=== PATIENT | male | born 1990 | race Caucasian/White ===

== ENCOUNTER 2019-03-31 13:14 | Emergency (ER) | payer OTHER ==
--- OUTSIDE RECORDS SUMMARY | 2019-03-31 13:29 | XMS REPORT | Continuity of Care Document ---
:1990 Author Organization [facility] Address [address] [place] [address] Care Team Providers Name Role Phone Unavailable Primary Care Physician Unavailable Insurance Providers Payer Name Policy Number Subscriber Name Relationship [employer]O NO FAULT [id number] ALEJANDRA JOSE SELF Chief Complaint and Reason for Visit Reason for Visit [employer] Problems Active Medical Problems Problem Onset Date Recorded Date Status Diabetic ketoacidosis Unknown 05/16/14 Active Diabetic neuropathy Unknown 07/25/14 Active Dehydration Unknown 06/22/15 Active DKA, type 1 Unknown 10/21/15 Active Gastroenteritis Unknown 10/23/15 Active Type 1 diabetes mellitus with diabetic neuropathy Unknown 10/23/15 Active Acute renal failure Unknown 11/30/15 Active Medications Current Home Medications Medication Dose Units Route Directions Days/Qty Instructions Start Date HUMALOG 100 UNIT Subcutaneous for BLOOD sliding scale as UNIT/1 ML VIAL SUGAR per blood sugar INSULIN 30 UNITS Subcutaneous AT BEDTIME for GLARGINE BLOOD SUGAR (LANTUS) (LANTUS) 100 UNIT/1 ML VIAL OXYCODONE 1 TAB Orally EVERY 4 HOURS, Max daily dose= HCL/ACETAMINOP NEEDED as HEN needed for (Oxycodon-Acet NEUROPATHY aminophen 7.5-325) 1 TAB TAB Past Home Medications Medication Directions Ordered Status Insulin Glargine (Lantus) AT BEDTIME for BLOOD SUGAR Unknown Discontinued (Lantus) 100 Unit/1 Ml Vial Vial, 31 Unit Subcutaneous Oxycodone Hcl/Acetaminophen DAILY NEEDED as needed for Unknown Discontinued (Percocet 5-325 Mg Tablet) 1 Each PERIPHERAL NEUROPATHY Tablet Tablet, Oxycodone Hcl/Acetaminophen EVERY 4 HOURS as needed for Unknown Discontinued (Percocet 5-325 Mg Tablet) 5 Pain Mg/325 Mg Tab Tab, 2 Tab Orally Oxycodone\Acetaminophen* EVERY 4 HOURS, NEEDED as Unknown Discontinued (Percocet*) 5 Mg/325 Mg Tab Tab, needed for NEUROPATHY 1 Tab Orally Social History Status Date Recorded Not March 27, 2019 Hospital Discharge Instructions No hospital discharge instructions. Plan of Care Discharge Date 03/27/19 Disposition Home () Prescriptions See Medications Section Functional Status No functional status results. Allergies, Adverse Reactions, Alerts Allergen Type Severity Reaction Status Last Updated [place] - No Known Drug Allergy Allergy Unknown Active 11/30/15 Immunizations No Known History of Immunizations. Vital Signs No Known Vital Signs Results. Results No known relevant diagnostic tests, laboratory data and/or discharge summary. Procedures Procedure Status Date Provider(s) CT CERVICAL SPINE W/O Active 03/27/[address] SPINE LUMBAR W/O Active 03/27/19 JOON SALCEDO MD Encounters Encounter Location Arrival/Admit Date Discharge/Depart Date Attending Provider Departed [facility] 03/27/19 8:27pm 03/27/19 10:17pm JOON SALCEDO [facility] MD [place]
[2019-03-31 13:53] VITALS: BP 146/95
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
== END 2019-03-31 14:59 | disposition home or self-care (01) ==
LOC: UCCORT 13:14
DX: S43.401A Unspecified sprain of right shoulder joint, initial encounter (principal); V89.2XXA Person injured in unspecified motor-vehicle accident, traffic, initial encounter; Y92.9 Unspecified place or not applicable; F17.220 Nicotine dependence, chewing tobacco, uncomplicated
CPT/HCPCS: 99202; G0463